=== PATIENT | female | born 1955 | race African-American/Black ===

== ENCOUNTER 2024-03-19 17:36 | Emergency (ER) | payer BC ==
[~2024-03-19] VITALS: Ht 162.6 cm; Wt 104.3 kg
[2024-03-19 17:50] VITALS: BP 150/72; TEMP 98.6; O2SAT 96
[2024-03-19] MEDS: TDAP [DIPH/PERTUSSIS/TET] 0.5 ML VIAL IM ONE (18:30)
[2024-03-19] MEDS ORDERED: TDAP [DIPH/PERTUSSIS/TET] 0.5 ML VIAL IM ONE (18:35)
== END 2024-03-19 18:41 | disposition home or self-care (01) ==
LOC: ER 17:41
DX: S61.210A Laceration without foreign body of right index finger without damage to nail, initial encounter (principal); E11.9 Type 2 diabetes mellitus without complications; Z88.5 Allergy status to narcotic agent; W26.8XXA Contact with other sharp object(s), not elsewhere classified, initial encounter; Y93.89 Activity, other specified; Y92.89 Other specified places as the place of occurrence of the external cause; Y99.8 Other external cause status
CPT/HCPCS: 90715